=== PATIENT | female | born 1945 | race Caucasian/White ===

== ENCOUNTER 2017-06-02 13:45 | Inpatient (IN) | payer OTHER ==
[~2017-06-02] VITALS: Ht 154.9 cm; Wt 60.3 kg
[~2017-06-02 13:45] MED LIST: ASPIRIN EC81 M1 PO; EFFEXOR XR75 MG PO; LEVOTHROID88 MCG PO; MULTIVITAMINS1 EAC7 PO; OMEGA-31000 M1 PO; SLO-NIACIN500 MG PO
[2017-06-02 14:45] VITALS: BP 124/65
[2017-06-02 17:07] LABS: ALBUMIN 3.8 g/dL (3.4-5.0); ANION GAP 11 mmol/L (7-16); BUN 16 mg/dL (7-18); CALCIUM 9.1 mg/dL (8.5-10.1); CHLORIDE 107 mmol/L (98-107); CO2 22 mmol/L (21-32); CREATININE 0.9 mg/dL (0.6-1.0); GLUCOSE 102 mg/dL (74-106); POTASSIUM 3.4 mmol/L (3.5-5.1); SGOT 19 U/L (15-37); SGPT 27 U/L (30-65); SODIUM 140 mmol/L (136-145); TOTAL BILIRUBIN 0.4 mg/dL (<0.1-1.0); TOTAL PROTEIN 7.2 g/dL (6.4-8.2); TROPONIN-I < 0.04 ng/mL (<0.06)
[2017-06-02 17:35] LABS: TSH 0.653 uIU/mL (0.358-3.740)
[2017-06-02 18:26] LABS: FOLIC ACID 39.1 ng/mL (8.6-58.9)
[2017-06-02 19:26] VITALS: BP 135/80
[2017-06-03 00:13] VITALS: BP 132/82
[2017-06-03 03:59] VITALS: BP 114/67
[2017-06-03 07:06] VITALS: BP 122/65
[2017-06-03 09:05] LABS: ABSOLUTE NEUTROPHILS 8.2 thou/uL (1.4-8.2); BASOPHILS 0.1 % (0.0-2.0); HEMATOCRIT 37.6 % (37.0-47.0); HEMOGLOBIN 12.6 gm/dL (12.0-15.0); LYMPHOCYTES 14.9 % (24.0-44.0); MCHC 33.4 g/dL (28.0-37.0); MCV 86.7 fL (80.0-100.0); MONOCYTES 1.1 % (1.0-8.0); PLATELET COUNT 351 thou/uL (150-400); POLYS 83.9 % (36.0-66.0); RBC 4.33 mil/uL (4.20-5.00); RDW 14.7 % (10.5-14.5); WBC 9.8 thou/uL (4.0-11.0)
[2017-06-03 09:23] LABS: POTASSIUM 3.2 mmol/L (3.5-5.1)
[2017-06-03 11:33] VITALS: BP 137/76
[2017-06-03 15:25] VITALS: BP 151/85
[2017-06-03 19:56] VITALS: BP 144/76
[2017-06-03] MEDS ORDERED: TRICOR145 MG PO (21:11)
[2017-06-03] MEDS ORDERED: ZANTAC 150MG T150 M1 PO (21:13)
[2017-06-03] MEDS ORDERED: CYCLOBENZAPRINE5 MG PO (21:16)
[2017-06-04 04:13] VITALS: BP 136/75
[2017-06-04 07:38] VITALS: BP 144/75
[2017-06-04 12:39] VITALS: BP 154/84
[2017-06-04] MEDS ORDERED: DIAZEPAM 2MG TAB2 MG PO (12:55)
[2017-06-04] MEDS ORDERED: PREDNISONE 10 M10 MG PO (13:00)
[2017-06-04 13:21] VITALS: BP 154/84
[2017-06-04 13:40] VITALS: BP 154/84
[2017-06-04 16:09] VITALS: BP 154/84
== END 2017-06-04 17:40 | disposition home or self-care (01) | DRG 156 ==
LOC: 2N 13:45
PROVIDERS: Nurse Practitioner
DX: H93.3X9 Disorders of unspecified acoustic nerve (principal); E89.0 Postprocedural hypothyroidism; Z87.891 Personal history of nicotine dependence; Z90.710 Acquired absence of both cervix and uterus; Z88.6 Allergy status to analgesic agent; Z91.041 Radiographic dye allergy status; Z79.899 Other long term (current) drug therapy
CPT/HCPCS: 10081

== ENCOUNTER → 2018-08-21 | Outpatient (CLI) | payer OTHER ==
[~2018-08-21] MED LIST changes: +CYCLOBENZAPRINE5 MG PO; +DIAZEPAM 2MG TAB2 MG PO; +PREDNISONE 10 M10 MG PO; +TRICOR145 MG PO; +ZANTAC 150MG T150 M1 PO
== END ==
LOC: RAD 11:31
DX: Z12.31 Encounter for screening mammogram for malignant neoplasm of breast (principal)

== ENCOUNTER → 2020-01-14 | Outpatient (CLI) | payer OTHER | LOC: BC 10:06 | PROVIDERS: ATTEND Nurse Practitioner | DX: Z12.31 Encounter for screening mammogram for malignant neoplasm of breast (principal) ==

== ENCOUNTER → 2021-02-10 | Outpatient (CLI) | payer OTHER | LOC: SJCVC 12:48 | PROVIDERS: ATTEND Internal Medicine | DX: E78.1 Pure hyperglyceridemia (principal); E78.5 Hyperlipidemia, unspecified; K21.9 Gastro-esophageal reflux disease without esophagitis; E03.9 Hypothyroidism, unspecified; E78.00 Pure hypercholesterolemia, unspecified; Z87.891 Personal history of nicotine dependence; Z88.8 Allergy status to other drugs, medicaments and biological substances; Z79.899 Other long term (current) drug therapy ==